=== PATIENT | male | born 1990 ===

== ENCOUNTER 2017-09-21 23:41 | Emergency (ER) | payer SELFPAY ==
[2017-09-22 00:08] VITALS: BP 123/76; RESP 16; TEMP 98.8; O2SAT 98
--- NOTE | 2017-09-22 01:03 | ED PDOC ---
Lower Extremity Pain/Injury Time Seen by Provider: 09/22/17 00:21 Chief Complaint (Nursing): Abnormal Skin Integrity Chief Complaint (Provider): left leg irritation History Per: Patient History/Exam Limitations: no limitations Onset/Duration Of Symptoms: Days (3) Current Symptoms Are (Timing): Still Present Additional Complaint(s): 27 y/o male presents with left leg irritation x 3 days. Patient states area of concern started as 3 red dots, which have since grown "bubbles" over them. Patient reports pain/irritation to area only when something rubs against it. Denies fever, pain to site, itching to site, drainage from site, numbness/ tingling to site. Past Medical History Reviewed: Historical Data, Nursing Documentation, Vital Signs Vital Signs: Last Vital Signs Temp 98.8 F 09/22/17 00:04 Pulse 108 H 09/22/17 00:04 Resp 16 09/22/17 00:04 BP 123/76 09/22/17 00:04 Pulse Ox 98 09/22/17 00:04 - Medical History PMH: Asthma - Surgical History Surgical History: No Surg Hx - Family History Family History: States: Unknown Family Hx - Immunization History Hx Tetanus Toxoid Vaccination: No Hx Influenza Vaccination: No Hx Pneumococcal Vaccination: No - Home Medications Home Medications: Ambulatory Orders Medication Instructions Recorded Cephalexin [Keflex] 500 mg PO Q6 #27 capsule 09/22/17 - Allergies Allergies/Adverse Reactions: Allergies Allergy/AdvReac Type Severity Reaction Status Date / Time No Known Allergies Allergy Verified 05/11/15 05:31 Review of Systems ROS Statement: Except As Marked, All Systems Reviewed And Found Negative Musculoskeletal: Positive for: Leg Pain (left) Physical Exam - Reviewed Nursing Documentation Reviewed: Yes Vital Signs Reviewed: Yes - Physical Exam Appears: Positive for: Well, Non-toxic, No Acute Distress Extremity: Positive for: Normal ROM, Other (erythematous vesicles noted posteior left leg over erythematous base. No drainage, tenderness, pustules noted) - ECG O2 Sat by Pulse Oximetry: 98 - Progress ED Course And Treament: Area cleaned with NS,bacitracin applied. Bandage applied. Patient educated on findings, discharged with rx Keflex (dose given in ED) Advised ot clean area daily, apply bacitracin, keep covered to prevent further irritation. Follow up PMD 2-3 days. Return precautions given. Disposition - Clinical Impression Clinical Impression: Rash and nonspecific skin eruption - Patient ED Disposition Is Patient to be Admitted: No Counseled Patient/Family Regarding: Diagnosis, Need For Followup, Rx Given - Disposition Referrals: Ozzy Geronimo MD [Primary Care Provider] - [facility] [Outside] Disposition: Routine/Home Disposition Time: 01:48 Condition: STABLE Prescriptions: Cephalexin [Keflex] 500 mg PO Q6 #27 capsule Instructions: Skin Rash Forms: [facility] ([place]rian)
[2017-09-22 02:02] VITALS: PULSE 92
== END 2017-09-22 01:55 | disposition home or self-care (01) ==
LOC: H.ER 23:41
DX: R21 Rash and other nonspecific skin eruption (principal)